=== PATIENT | female | born 1975 | race Hispanic/Latino ===

== ENCOUNTER 2025-06-15 17:39 | Emergency (ER) | payer BC, OTHER ==
[~2025-06-15] VITALS: Ht 152.4 cm; Wt 75.7 kg
--- NOTE | 2025-06-15 17:49 | ERN ---
ED Note History of Present Illness Stated Complaint: NAUSEA Chief Complaint: Nausea,Vomiting,Diarrhea Time Seen by MD: 17:41 Dictation: PATIENT IS A 49-YEAR-OLD FEMALE COMING IN TODAY WITH GENERALIZED BODY WEAKNESS NAUSEA VOMITING ONSET ESAU TODAY. SHE STATES SHE IS TRYING TO LOSE WEIGHT AND BOUGHT SOME MOUNJARO FROM A FRIEND AND INJECTED HERSELF YESTERDAY. STATES IT WAS NOT PRESCRIBED FOR HER. SHE STATES IT WE WILL BE LAST TIME SHE EVER DOES THIS. SHE STATES HER BLOOD SUGAR HAS BEEN DROPPING CURRENTLY WAS 91 BEFORE SHE GOT HERE NOW 89. SHE FEELS VERY NAUSEATED.. DIABETES SHE HAD STATES SHE DOES HAVE A PRIMARY CARE DOCTOR. NO FEVER NO CHILLS Allergies: Coded Allergies: No Known Drug Allergies (Unverified Allergy, Unknown, 06/15/25) Past Medical History Past Medical History: No Pertinent History Surgical History: Cholecystectomy History: Not Applicable RN Note Reviewed/Agreed w/PFSH: Yes Review of System Dictation CONSTITUTIONAL: NEGATIVE EXCEPT FOR HPI GB W HEAD/FACE: NEGATIVE EXCEPT FOR HPI EENT: NEGATIVE EXCEPT FOR HPI RESPIRATORY: NEGATIVE EXCEPT FOR HPI GASTROINTESTINAL/ABDOMINAL: NEGATIVE EXCEPT FOR HPI NAUSEA VOMITING GENITOURINARY: NEGATIVE EXCEPT FOR HPI MUSCULOSKELETAL: NEGATIVE EXCEPT FOR HPI INTEGUMENTARY: NEGATIVE EXCEPT FOR HPI NEUROLOGICAL/PSYCH: NEGATIVE EXCEPT FOR HPI HEMATOLOGIC/LYMPHATIC: NEGATIVE EXCEPT FOR HPI ALL SYSTEMS NEGATIVE, EXCEPT NOTED ABOVE. 13 POINT REVIEW OF SYSTEMS ASSESSED AND ALL NEGATIVE EXCEPT FOR ABOVE. Initial Vital Sign VS Vital Signs Date Time Temp Pulse Resp B/P (MAP) Pulse Ox O2 Delivery O2 Flow Rate FiO2 06/15/25 17:41 97.9 104 16 130/85 98 Room Air 06/15/25 18:14 0 21 Physical Exam Dictation VITAL SIGNS REVIEWED GENERAL APPEARANCE: ALERT, ORIENTED X 3, MODERATE ACUTE DISTRESS, WELL DEVEL OPED, NOURISHED. HEAD AND FACE: NON-TRAUMATIC. EYES: PERRL, PINK CONJUNCTIVAS, EYELID NO TRAUMA, ANTERIOR CHAMBER WITH ARCUS SE NILIS. EARS: PINNAS INTACT AND NO SIGNS OF TRAUMA OR ERYTHEMA EAR CANALS CLEAR AND NO DISCHARGE TM NO ERYTHEMA NOSE: NO DISCHARGE, NO BLEEDING. OROPHARYNX: MOUTH NORMAL, TONGUE PINK, PHARYNX CLEAR,NO ERYTHEMA, TONSILS NO EXUDATES, NO ABSCESSES NOTED, MUCOUS MEMBRANE MOIST NECK: SUPPLE, NON-TENDER, NO THYROMEGALY, NO MASSES, NO JVD, NO BRUITS BREAST:DEFERRED CHEST:NO TENDERNESS, NO CREPITUS, NO PARADOXICAL MOVEMENT, NO RETRACTIONS LUNGS:CLEAR, WELL-VENTILATED, SYMMETRIC, NO RALES, NO WHEEZING, NO RHONCHI, NO STRIDOR, GOOD BREATH SOUNDS BILATERALLY HEART: REGULAR RATE, REGULAR RHYTHM, NO MURMUR, NO GALLOPS VASCULAR: NO PERIPHERAL EDEMA, ABDOMEN: SOFT, POSITIVE BOWEL SOUNDS, NONDISTENDED, NO GUARDING, NONTENDER, NO REBOUND, NO MASSES NO HEPATOMEGALY, NO SPLENOMEGALY, NO MELISSA'S SIGN, NO HERNIAS. ACTIVELY NAUSEATED TRIAGE RECTAL: DEFERRED GENITAL: DEFERRED NEUROLOGICAL: NORMAL SPEECH, MOTOR FUNCTION INTACT, SENSORY FUNCTION INTACT MUSCULOSKELETAL: NECK NONTENDER, FULL RANGE OF MOTION, BACK NONTENDER, FULL RANGE OF MOTION, EXTREMITIES: NONTENDER, FULL RANGE OF MOTION SKIN: COLOR PINK, DRY, NO TURGOR, NO RASH, NO LACERATIONS, NO ABRASIONS, NO CONTUSIONS. LYMPHATIC: DEFERRED Results (Laboratory/Radiology) Laboratory/Radiology Laboratory Tests Test 06/15/25 17:59 06/15/25 18:06 White Blood Count 7.6 K/uL (4.8-10.8) Red Blood Count 5.27 MIL/uL (4.00-5.50) Hemoglobin 16.5 g/dL (12.0-16.0) H Hematocrit 48.6 % (36-48) H Mean Corpuscular Volume 92.2 fL (79-99) Mean Corpuscular Hemoglobin 31.3 pg (27.0-33.0) Mean Corpuscular Hemoglobin Concent 34.0 g/dL (32.0-36.0) Red Cell Distribution Width 12.5 % (11.0-15.5) Platelet Count 394 K/uL (130-400) Mean Platelet Volume 9.8 fL (7.5-10.5) Immature Granulocyte % (Auto) 0.1 % (0-1) Neutrophils (%) (Auto) 52.9 % (40.0-77.0) Lymphocytes (%) (Auto) 35.6 % (21.0-51.0) Monocytes (%) (Auto) 9.3 % (3.0-13.0) Eosinophils (%) (Auto) 1.2 % (0.0-8.0) Basophils (%) (Auto) 0.9 % (0.0-5.0) Neutrophils # (Auto) 4.0 K/uL (1.8-7.7) Lymphocytes # (Auto) 2.7 K/uL (1.0-4.8) Monocytes # (Auto) 0.7 K/uL (0.1-1.0) Eosinophils # (Auto) 0.09 K/uL (0.00-0.70) Basophils # (Auto) 0.07 K/uL (0.00-0.20) Absolute Immature Granulocyte (auto 0.01 K/uL (0-1) Nucleated Red Blood Cells 0.0 % (0.0-0.19) Sodium Level 140 mmol/L (136-145) Potassium Level 4.0 mmol/L (3.5-5.1) Chloride Level 106 mmol/L (101-111) Carbon Dioxide Level 26 mmol/L (21-32) Blood Urea Nitrogen 12 mg/dL (7-18) Creatinine 0.8 mg/dL (0.5-1.0) Glomerular Filtration Rate Calc 91 mL/min (>90) Random Glucose 89 mg/dL (70-105) Total Calcium 9.7 mg/dL (8.5-10.1) Lipase 48 U/L (16-77) Whole Blood Glucose 85 MG/DL (70-110) Labs Reviewed?: Yes ED Course ED Course Orders Procedure Category Date Status Time Cbc With Differential LAB 06/15/25 Complete 17:45 Urinalysis Profile LAB 06/15/25 Logged 17:45 0.9%Nacl 1000ml (Ns PHA 06/15/25 Complete 1000ml) 18:00 Ondansetron 4mg Inj PHA 06/15/25 Complete (Zofran 4mg Inj) 18:00 Famotidine 20mg Vial PHA 06/15/25 Complete (Pepcid 20mg Vial) 18:00 Lipase LAB 06/15/25 Complete 17:45 Basic Metabolic Panel LAB 06/15/25 Complete 17:45 Bedside Glucose CPOE 06/15/25 Transmitted Fingerstick 17:49 Current Medications Medications (Trade) Dose Ordered Sig/Priyanka Route PRN Reason Start Time Stop Time Status Last Admin Dose Admin Famotidine (Pepcid 20mg Vial) 20 mg ONCE ONCE IV 06/15/25 18:00 06/15/25 18:01 DC 06/15/25 18:10 Ondansetron HCl (zoFRAN 4MG INJ) 4 mg ONCE ONCE IVP 06/15/25 18:00 06/15/25 18:01 DC 06/15/25 18:10 Sodium Chloride 1,000 ml @ 0 mls/hr ONCE ONCE IV 06/15/25 18:00 06/15/25 18:01 DC 06/15/25 18:10 Vital Signs Date Time Temp Pulse Resp B/P (MAP) Pulse Ox O2 Delivery O2 Flow Rate FiO2 06/15/25 18:53 97.9 81 18 144/81 98 Room Air* 0 21 06/15/25 18:14 88 18 134/90 94 Room Air* 0 21 06/15/25 17:41 97.9 104 16 130/85 98 Room Air 1945/PATIENT IS ALERT AND ORIENTED X4 SPEECH CLEAR NO NAUSEA VOMITING AT THIS TIME. SHE WAS MADE AWARE TO NOT CONTINUE WOUND JAW UNTIL SHE IS CLEARED BY Medical Decision Making MDM MDM: DIFFERENTIAL DIAGNOSIS: GASTRITIS/PANCREATITIS/ELECTROLYTE IMBALANCE/DEHYDRATION/MEDICATION SIDE EFFECT RATIONALE: TESTS CONSIDERED AND ORDERED SECONDARY TO SHARED DECISION MAKING INCLUDE: LABS PREVIOUS OUTSIDE RECORDS REVIEWED: OLD ER VISITS. RISK OF COMPLICATION AND/OR MORBIDITY OR MORTALITY OF PATIENT MANAGEMENT: NONE MEDICATIONS-PER MEDICATION RECONCILIATION NEED FOR HOSPITALIZATION: PATIENT DOES NOT MEET CRITERIA FOR HOSPITALIZATION. NONE NEED FOR EMERGENCY MAJOR/MINOR SURGERY: NO THERE ARE NO SOCIAL CONCERNS WITH THIS PATIENT. PRESCRIPTION DRUG MANAGEMENT NONE PRESCRIPTIONS WILL INCLUDE SYMPTOMATIC CARE PATIENT'S PRIOR EXTERNAL MEDICAL RECORDS FROM OTHER ER VISITS WERE REVIEWED BY ME INDICATED. PRIOR TESTING AND RESULTS FROM PREVIOUS VISITS WERE REVIEWED. PRIOR TESTS WERE TAKEN INTO ACCOUNT WITH MEDICAL DECISION MAKING AND RESOURCE UTILIZATION, INDEPENDENT HISTORIAN/HISTORIANS WERE USED TO OBTAIN COMPLETE MEDICAL HISTORY. I INDEPENDENTLY INTERPRETED THE TEST THAT WERE PERFORMED, RESULTS WERE REVIEWED BY ME AND CONSIDERED FINDINGS ON RADIOLOGY IF ORDERED. MEDICAL MANAGEMENT AND EXAMINATION INTERPRETATION DISCUSSIONS WERE HAD BY ME WITH OTHER QUALIFIED HEALTHCARE PROFESSIONALS INDICATED FOR THE PATIENT'S CARE. DX & DISP Disposition: Discharge Departure Impression: Primary Impression: Medication side effects present Additional Impression: Nausea & vomiting Condition: Stable Scripts Ondansetron (Ondansetron Odt) 4 Mg Tab.rapdis 0.5 TAB PO Q6HPRN PRN for nausea/vomiting for 4 Days, #8 TAB 0 Refills Prov: VELMA YEN GERMAN INSTRUCTOR 06/15/25 Additional Instructions: FOLLOW-UP WITH PRIMARY CARE PROVIDER IN 1 TO 2 DAYS. TAKE MEDICATIONS DIRECTED HERE IN THE EMERGENCY ROOM. OKAY TO CONTINUE HOME MEDICATIONS UNLESS OTHERWISE DISCUSSED DURING YOUR VISIT IN THE EMERGENCY ROOM TODAY. RETURN TO YOUR NEAREST EMERGENCY ROOM IF SYMPTOMS WORSEN OR IF THERE IS NO IMPROVEMENT. CALL 911 IF YOU NEED IMMEDIATE ASSISTANCE. TAKE TYLENOL OR MOTRIN [id number] NEEDED AND IF NO CONTRAINDICATIONS ARE PRESENT. INCREASE ORAL HYDRATION. A WOUND CULTURE OR URINE CULTURE WAS ORDERED HERE IN THE EMERGENCY ROOM DEPARTMENT PLEASE FOLLOW-UP WITH PRIMARY CARE PROVIDER AND ADVISE THEM TO GET REPEAT PORTS FROM OUR FACILITY. IF YOU HAD ANY YAJAIRA WRAP/SPLINTS THAT WERE APPLIED HERE, PLEASE DO NOT REMOVE THEM UNTIL YOU SEE YOUR PRIMARY CARE OR SPECIALTY. TAKE ZOFRAN DIRECTED FOR NAUSEA VOMITING. DO NOT TAKE ANY MEDICATIONS AND ARE NOT PRESCRIBED FOR YOU AND SEE YOUR PRIMARY CARE DOCTOR FOR CLEARANCE TOMORROW BACK TO WORK. POLICE LET HIM KNOW THAT YOU TAKEMOUNJARO WITHOUT A PRESCRIPTION Referrals: SELF,REFERRAL (PCP) Time of Disposition: 19:46 I have reviewed the case, and I agree with, Diagnosis and Plan VELMA YEN NP Jun 15, 2025 17:48
[2025-06-15] MEDS: 0.9%NACL 1000ML 1,000 ML IV ONE (18:10)
[2025-06-15] MEDS: FAMOTIDINE 20MG VIAL IV ONE (18:10)
[2025-06-15 18:13] LABS: IMMATURE GRANULOCYTE ABSOLUTE 0.01 K/uL (0-1); NUCLEATED RED BLOOD CELLS 0.0 % (0.0-0.19); PLATELET COUNT (AUTO) 394 K/uL (130-400); RED BLOOD CELL COUNT(AUTO) 5.27 MIL/uL (4.00-5.50); RED CELL DISTRIBUTION WIDTH 12.5 % (11.0-15.5); WHITE BLOOD COUNT (AUTO) 7.6 K/uL (4.8-10.8)
[2025-06-15 18:29] LABS: CREATININE 0.8 mg/dL (0.5-1.0); GLOMERULAR FILTR. RATE CALC 91.0 mL/min (>90); GLUCOSE,RANDOM 89.0 mg/dL (70-105); SODIUM SERUM 140.0 mmol/L (136-145); UREA NITROGEN, BLOOD 12.0 mg/dL (7-18)
--- NOTE | 2025-06-15 18:29 | NUR ---
PER PATIENT'S REQUEST TO CUT PART OF SLEEVE DO TO IT APPLYING PRESSURE TO IV SITE ON THE LEFT AC.
[2025-06-15] MEDS ORDERED: ONDA-243 PO (19:47)
[2025-06-15 19:50] VITALS: BP 124/71; PULSE 80; RESP 18; TEMP 97.9; O2SAT 96
== END 2025-06-15 20:05 | disposition home or self-care (01) ==
LOC: EDH 17:39
DX: R11.2 Nausea with vomiting, unspecified (principal); R53.1 Weakness; T50.995A Adverse effect of other drugs, medicaments and biological substances, initial encounter; Z90.49 Acquired absence of other specified parts of digestive tract; Y92.89 Other specified places as the place of occurrence of the external cause
CPT/HCPCS: 99284; 96374; 96361; 96375; 80048; 83690; 85025; 82948; 36415; J3490; J7030; J2405